=== PATIENT | female | born 1930 | race Two or more races ===

== ENCOUNTER 2020-03-13 16:44 | Outpatient (CLI) | payer OTHER | END 2020-03-13 17:34 | disposition home or self-care (01) | LOC: RAD 16:44 | PROVIDERS: ATTEND Orthopaedic Surgery | DX: S82.64XA Nondisplaced fracture of lateral malleolus of right fibula, initial encounter for closed fracture (principal) ==

== ENCOUNTER → 2020-03-26 | Outpatient (CLI) | payer OTHER | END | disposition home or self-care (01) | LOC: RAD 15:23 | PROVIDERS: ATTEND Orthopaedic Surgery | DX: S82.64XA Nondisplaced fracture of lateral malleolus of right fibula, initial encounter for closed fracture (principal) ==